=== PATIENT | male | born 1975 | race African-American/Black ===

== ENCOUNTER 2017-11-22 02:36 | Emergency (ER) | payer SELFPAY ==
[2017-11-22 02:54] VITALS: BP 164/103; PULSE 75; TEMP 97.5; BMI 35.3
--- NOTE | 2017-11-22 02:58 | PDOC ---
History of Present Illness - General History Source: Patient Exam Limitations: No Limitations - History of Present Illness Initial Comments: 11/22/17 04:32 Patient is a 42 male with no significant past medical history of who presents to the ED with complaints of nasal congestion that began 2 weeks ago. Patient reports daughter was diagnosed with flu 2 weeks ago, prompting him get his flu shot, stating i have not felt ok since i got the shot. He reports nasal congestion increased last night after he fell asleep causing him to experience Sob, prompting him to come into the ED for further evaluation. Denies chest pain, coughing. Denies nausea, vomiting. Denies fevers, chills. Denies out of state travelling. Denies diarrhea, constipation, diarrhea, hematuria. Denies body aches. Denies any other symptoms. Allergies: None Social history: Lives with daughter. No smoking. No alcohol. No illicit drugs, Surgical history: No illicit drugs. PMD: None <Jerome Morrison - Last Filed: 11/22/17 04:32> <Melanie Goodwin - Last Filed: 11/22/17 05:57> - General Chief Complaint: Shortness of Breath Stated Complaint: DIFFICULTY BREATHING Time Seen by Provider: 11/22/17 02:57 Past History <Jerome Morrison - Last Filed: 11/22/17 04:32> - Suicide/Smoking/Psychosocial Hx Smoking History: Never smoked Have you smoked in the past 12 months: No Information on smoking cessation initiated: No Hx Alcohol Use: No Drug/Substance Use Hx: No <Melanie Goodwin - Last Filed: 11/22/17 05:57> - Past Medical History Allergies/Adverse Reactions: Allergies Allergy/AdvReac Type Severity Reaction Status Date / Time No Known Allergies Allergy Verified 11/22/17 02:52 Home Medications: Ambulatory Orders NK [No Known Home Medication] 11/22/17 Review of Systems - Review of Systems Able to Perform ROS?: Yes Comments:: 11/22/17 04:32 GENERAL/CONSTITUTIONAL: No fever or chills. No weakness. HEAD, EYES, EARS, NOSE AND THROAT: +Nasal congestion. No change in vision. No ear pain or discharge. No sore throat. CARDIOVASCULAR: No chest pain or shortness of breath. RESPIRATORY: No cough, wheezing, or hemoptysis. GASTROINTESTINAL: No nausea, vomiting, diarrhea or constipation. GENITOURINARY: No dysuria, frequency, or change in urination. MUSCULOSKELETAL: No joint or muscle swelling or pain. No neck or back pain. SKIN: No rash NEUROLOGIC: No headache, vertigo, loss of consciousness, or change in strength/ sensation. ENDOCRINE: No increased thirst. No abnormal weight change. HEMATOLOGIC/LYMPHATIC: No anemia, easy bleeding, or history of blood clots. ALLERGIC/IMMUNOLOGIC: No hives or skin allergy. <Jerome Morrison - Last Filed: 11/22/17 04:32> *Physical Exam - Vital Signs Last Vital Signs Temp Pulse Resp BP Pulse Ox 97.5 F L 75 20 164/103 98 11/22/17 02:52 11/22/17 02:52 11/22/17 02:52 11/22/17 02:52 11/22/17 03:07 - Physical Exam Comments: 11/22/17 04:32 GENERAL: Awake, alert, and fully oriented, in no acute distress HEAD: No signs of trauma EYES: PERRLA, EOMI, sclera anicteric, conjunctiva clear ENT: Auricles normal inspection, hearing grossly normal, nares patent, oropharynx clear without exudates. Moist mucosa NECK: Normal ROM, supple, no lymphadenopathy, JVD, or masses LUNGS: Breath sounds equal, clear to auscultation bilaterally. No wheezes, and no crackles HEART: Regular rate and rhythm, normal S1 and S2, no murmurs, rubs or gallops ABDOMEN: Soft, nontender, normoactive bowel sounds. No guarding, no rebound. No masses EXTREMITIES: Normal range of motion, no edema. No clubbing or cyanosis. No cords, erythema, or tenderness NEUROLOGICAL: Cranial nerves II through XII grossly intact. Normal speech, normal gait SKIN: Warm, Dry, normal turgor, no rashes or lesions noted. <Jerome Morrison - Last Filed: 11/22/17 04:32> - Vital Signs Last Vital Signs Temp Pulse Resp BP Pulse Ox 97.5 F L 75 20 164/103 97 11/22/17 02:52 11/22/17 02:52 11/22/17 02:52 11/22/17 02:52 11/22/17 02:52 <Melanie Goodwin - Last Filed: 11/22/17 05:57> ED Treatment Course - Medications Given in the ED: ED Medications Discontinued Medications Generic Name Dose Route Start Last Admin Trade Name Jean-Claude PRN Reason Stop Dose Admin Dexamethasone 10 mg 11/22/17 03:45 11/22/17 03:56 Decadron Liquid - PO 11/22/17 03:46 10 mg ONCE ONE Administration Diphenhydramine HCl 50 mg 11/22/17 03:46 11/22/17 03:56 Benadryl - PO 11/22/17 03:47 50 mg ONCE ONE Administration <Jerome Morrison - Last Filed: 11/22/17 04:32> Medical Decision Making - Medical Decision Making 11/22/17 05:55 Pt comes with difficulty breathing and sinus congestion. States that he has no PMHx. He has a post nasal drip. He has no fever and no joint pains this is not the flu. His cxr is normal. <Melanie Goodwin - Last Filed: 11/22/17 05:57> *DC/Admit/Observation/Transfer - Attestations Scribe Attestion: 11/22/17 04:33 Documentation prepared by Jerome Morrison, acting as medical administrative specialist for Melanie Goodwin MD/DO. <Jerome Morrison - Last Filed: 11/22/17 04:32> - Discharge Dispostion Admit: No <Melanie Goodwin - Last Filed: 11/22/17 05:57> Diagnosis at time of Disposition: Nasal congestion, Viral upper respiratory illness, Postnasal drip - Discharge Dispostion Disposition: HOME Condition at time of disposition: Stable - Patient Instructions Printed Discharge Instructions: DI for Nasal Congestion - Post Discharge Activity Forms/Work/School Notes: Back to Work
[2017-11-22] MEDS ORDERED: DEXAMETHASONE LIQUID 0.5 MG/5 ML 240 ML BULK BOTTLE PO ONE (03:45)
[2017-11-22] MEDS ORDERED: diphenhydrAMINE HCL 50 MG CAPSULE PO ONE (03:46)
[2017-11-22] MEDS ORDERED: diphenhydrAMINE HCL 25 MG CAPSULE (FP) PO ONE (03:51)
[2017-11-22] MEDS ORDERED: DEXAMETHASONE SOD PHOSPHATE 10 MG/1 ML VIAL ONE (03:51)
== END 2017-11-22 04:13 | disposition home or self-care (01) ==
LOC: JER 02:36
DX: J06.9 Acute upper respiratory infection, unspecified (principal); R09.82 Postnasal drip; R09.81 Nasal congestion
CPT/HCPCS: 71046-TC-FY; 99283-25